=== PATIENT | male | born 1990 | race Caucasian/White ===

== ENCOUNTER 2019-02-16 15:51 | Emergency (ER) | payer OTHER ==
[~2019-02-16] VITALS: Ht 182.9 cm; Wt 83.9 kg
[2019-02-16 15:58] VITALS: Ht 182.9 cm; Wt 83.9 kg
[2019-02-16 18:26] VITALS: BP 136/90
== END 2019-02-16 18:27 | disposition home or self-care (01) ==
LOC: ED 15:51
DX: R07.89 Other chest pain (principal); F41.9 Anxiety disorder, unspecified; R00.2 Palpitations; R20.2 Paresthesia of skin; R53.1 Weakness
CPT/HCPCS: J2060; Q0092